=== PATIENT | female | born 1955 | race Caucasian/White ===

== ENCOUNTER → 2017-09-12 08:54 | Outpatient (CLI) | payer MEDICARE, BC ==
[2014-06-22 09:06] VITALS: BMI 48.1
[~2017-09-12 08:54] MED LIST: ASTELIN137 MCG NS; BENTYL10 MG PO; CARAFATE1 G PO; CELEXA20 MG PO; CHLORDIAZEPOXIDE; CLIDINIUM; DEMEROL50 MG PO; DEXILANT60 MG PO; EFFEXOR XR37.5 MG PO; ELIQUIS2.5 MG PO; KLONOPIN0.5 MG PO; NEURONTIN600 MG PO; PERCOCET 10/3251 TA1 PO; SOMA350 MG PO; SYNTHROID125 MCG PO; TENORMIN50 MG PO; TRADJENTA5 MG PO; TYLENOL PM1 TAB PO; ULTRAM50 MG PO; VITAMIN D50000 UNIT PO; ZANAFLEX4 MG PO
== END | disposition home or self-care (01) ==
LOC: D.MRI 08:54
DX: M25.512 Pain in left shoulder (principal)

== ENCOUNTER 2017-10-17 03:10 | Emergency (ER) | payer MEDICARE, BC ==
[~2017-10-17] VITALS: Ht 142.2 cm; Wt 111.4 kg
[2017-10-17 03:19] VITALS: Ht 142.2 cm; Wt 111.4 kg
[2017-10-17 04:24] LABS: APPEARANCE HAZY (CLEAR); BILIRUBIN NEGATIVE (NEGATIVE); COLOR YELLOW (YELLOW); GLUCOSE NEGATIVE (NEGATIVE); KETONE SMALL mg/dL (NEGATIVE); NITRITE NEGATIVE (NEGATIVE); PROTEIN NEGATIVE (NEGATIVE); SPECIFIC GRAVITY 1.025 (1.005-1.020); UROBILINOGEN NORMAL (NORMAL)
[2017-10-17 04:32] LABS: AMORPHOUS SEDIMENT <1+ /lpf (NONE SEEN); BACTERIA MANY /hpf (NONE SEEN); CALCIUM OXALATE CRYSTALS 0-5 /hpf (NONE SEEN); EPITHELIAL CELLS 0-5 /hpf (0-5); GRANULAR CAST OCC /lpf (NONE SEEN); HYALINE CAST RARE /lpf (NONE SEEN); RED CELLS - URINE 0-5 /hpf (0-5); WHITE CELLS - URINE 0-5 /hpf (0-5)
[2017-10-17 04:33] LABS: TALC POWDER CRYSTALS 0-5 /hpf (NONE SEEN)
[2017-10-17 04:43] LABS: BASOPHILS 0.3 % (0-2); EOSINOPHILS 0.2 % (0-7); HEMATOCRIT 40.5 % (36.0-48.0); HEMOGLOBIN 13.5 g/dL (12-16); IMMATURE GRANULOCYTES 0.3 % (0-5); LYMPHOCYTES 28.6 % (15-50); MCH 29.4 pg (26.0-34.0); MCHC 33.3 g/dL (31.0-37.0); MCV 88.2 fL (80.0-100.0); MEAN PLATELET VOLUME 9.6 fL (7.4-10.4); MONOCYTES 10.9 % (2-11); NEUTROPHILS 59.7 % (40-80); PLATELET COUNT 239 10x3/uL (130-400); RBC 4.59 10x6/uL (4.00-5.40); RDW 13.5 % (11.5-14.5); WBC 10.4 10x3/uL (4.8-10.8)
[2017-10-17 04:57] LABS: ALKALINE PHOSPHATASE 118 U/L (46-116); ALT (SGPT) 23 U/L (10-68); AMYLASE - SERUM 24 U/L (25-115); CALC OSMOLALITY 276 mosm/kg (275-300); CALCIUM 9.6 mg/dL (8.5-10.1); CARBON DIOXIDE 31.6 mmol/L (21.0-32.0); CHLORIDE - SERUM 102 mmol/L (98-107); CREATININE - SERUM 0.7 mg/dL (0.6-1.3); GLUCOSE 123 mg/dL (74-106); LIPASE 84 U/L (73-393); PROTEIN - SERUM 7.7 g/dL (6.4-8.2); SODIUM 138 mmol/L (136-145); UREA NITROGEN 13 mg/dL (7-18); eGFR NON AFRICAN AMERICAN 90 mL/min (90-120)
[2017-10-17] MEDS ORDERED: ZOFRAN8 MG PO (05:23)
[2017-10-17] MEDS ORDERED: BACTRIM DS TABL1 TAB PO (05:23)
[2017-10-17 05:47] VITALS: BP 135/85
== END 2017-10-17 05:48 | disposition home or self-care (01) ==
LOC: D.ER 03:10
PROVIDERS: Family Medicine
DX: N39.0 Urinary tract infection, site not specified (principal); F11.23 Opioid dependence with withdrawal

== ENCOUNTER 2018-08-09 07:33 | Day surgery (SDC) | payer MEDICARE, BC ==
[~2018-08-09] VITALS: Ht 142.2 cm; Wt 111.8 kg
[~2018-08-09 07:33] MED LIST changes: +BACTRIM DS TABL1 TAB PO; +ZOFRAN8 MG PO
[2018-08-09 08:00] LABS: HEMATOCRIT 38.9 % (36.0-48.0); HEMOGLOBIN 12.9 g/dL (12-16); MCH 29.7 pg (26.0-34.0); MCHC 33.2 g/dL (31.0-37.0); MCV 89.6 fL (80.0-100.0); MEAN PLATELET VOLUME 9.5 fL (7.4-10.4); RBC 4.34 10x6/uL (4.00-5.40); RDW 12.7 % (11.5-14.5); WBC 8.5 10x3/uL (4.8-10.8)
[2018-08-09 08:06] LABS: CALC OSMOLALITY 282 mosm/kg (275-300); CALCIUM 8.8 mg/dL (8.5-10.1); CARBON DIOXIDE 28.7 mmol/L (21.0-32.0); CHLORIDE - SERUM 105 mmol/L (98-107); CREATININE - SERUM 0.8 mg/dL (0.6-1.3); GLUCOSE 107 mg/dL (74-106); POTASSIUM - SERUM 3.8 mmol/L (3.5-5.1); SODIUM 143 mmol/L (136-145); UREA NITROGEN 8 mg/dL (7-18); eGFR NON AFRICAN AMERICAN 76 mL/min (90-120)
[2018-08-09] MEDS ORDERED: TYLENOL ARTHRITIS (08:36)
[2018-08-09] MEDS ORDERED: FLAXSEED (08:36)
[2018-08-09] MEDS ORDERED: VITAMIN C (08:37)
[2018-08-09] MEDS ORDERED: MILK THISTLE (08:37)
[2018-08-09] MEDS ORDERED: PROBIOTIC1 EAC1 PO (08:37)
[2018-08-09 08:58] VITALS: BP 145/85; Ht 142.2 cm; Wt 111.8 kg
--- NOTE | 2018-08-09 12:55 | NUR ---
1235 IV DC'D. CATHETER INTACT. NO BLEEDING AT SITE. BANDAID APPLIED. 1245 PT UNDERSTANDS DISCHARGE INSTRUCTIONS. PT'S DIGITAL [employer] SALES CONSULTANT IS HERE FOR TRANSPORT.
--- NOTE | 2018-08-13 10:17 | OP ---
PATIENT NAME: TEJINDER MCGHEE MEDICAL RECORD: [id number] :51 LOCATION:[facility] ADMISSION DATE: SURGEON: MARCELLO DUMONT MD DATE OF OPERATION: 08/09/2018 PROCEDURE: Colonoscopy with polypectomy. REFERRING PHYSICIAN: Julita Michel MD INDICATIONS: Ms. Mcghee is a delightful 62-year-old woman with a history of right colonic volvulus status post hemicolectomy, colon polyps and diverticulosis coli. She presents for outpatient surveillance colonoscopy. PREMEDICATIONS: Total IV anesthesia (BMI is 55.2) propofol 200 mg. INSTRUMENT: Alex and Ani video colonoscope, pediatric. PROCEDURE AND FINDINGS: After receiving informed consent, Ms. Mcghee was placed in left lateral decubitus position, sedated as per anesthesia. After achieving adequate level of sedation, a digital rectal exam was performed that showed no external hemorrhoidal tags, fissures or fistulas, normal sphincter tone, no palpable rectal masses. The colonoscope was introduced per rectally and advanced to the cecum without difficulty. The ileocolonic anastomosis was identified and appeared unremarkable. As the colonoscope was withdrawn, careful inspection was made of the mccartney of the colon. Overall, mucosa had normal vascular and fold pattern. A fair prep was present. There was some residual liquid stool. Multiple lavages were performed. In the transverse colon was a 0.3 cm sessile polyp removed with hot biopsy forceps technique and in the descending colon was a 0.75 cm sessile polyp removed with hot biopsy forceps technique. A few diverticula were seen scattered in the sigmoid colon. Retroflexion in the rectum showed mild internal hemorrhoids with a few tags. Withdrawal time was 9 minutes. Ms. Mcghee tolerated the procedure well, no immediate complications. ASSESSMENT: 1. Mild sigmoid diverticulosis. 2. Descending colon polyp status post polypectomy and transverse colon polyp status post polypectomy and mild internal hemorrhoids. RECOMMENDATIONS: 1. Follow up histopathology. 2. Avoid aspirin, nonsteroidal anti-inflammatory drugs and COE-2 inhibitors for 14 days post-polypectomy. 3. High fiber diet. 4. Surveillance colonoscopy in 3 years. TRANSINT:[id number] Voice Confirmation ID: [id number] DOCUMENT ID: [id number] OPERATIVE REPORT [id number] TEJINDER MCGHEE MARCELLO DUMONT MD at 1017 CC: JULITA MICHEL MD [id number] DICTATION DATE: 08/09/18 1134 AQUATICS DIRECTOR: 08/09/18 1322 DEP SDC 08/09/18 [id number] [place] [address]
== END 2018-08-09 12:52 | disposition home or self-care (01) ==
LOC: D.OPS 07:33
PROVIDERS: Anesthesiology; ATTEND Internal Medicine Gastroenterology
DX: K57.30 Diverticulosis of large intestine without perforation or abscess without bleeding (principal); D12.4 Benign neoplasm of descending colon; K63.5 Polyp of colon; K64.8 Other hemorrhoids; K64.4 Residual hemorrhoidal skin tags; Z90.49 Acquired absence of other specified parts of digestive tract; Z01.812 Encounter for preprocedural laboratory examination

== ENCOUNTER → 2018-09-16 07:33 | Outpatient (CLI) | payer MEDICARE, BC ==
[2018-08-09 08:58] VITALS: BMI 55.2
[~2018-09-16 07:33] MED LIST changes: +FLAXSEED; +MILK THISTLE; +PROBIOTIC1 EAC1 PO; +TYLENOL ARTHRITIS; +VITAMIN C
== END | disposition home or self-care (01) ==
LOC: D.CT 07:33
PROVIDERS: ATTEND Nurse Practitioner Family
DX: J32.9 Chronic sinusitis, unspecified (principal)

== ENCOUNTER → 2019-05-13 09:21 | Outpatient (CLI) | payer MEDICARE, OTHER ==
[~2019-05-13] VITALS: Ht 142.2 cm; Wt 114.8 kg
[2019-05-13 14:22] VITALS: Ht 142.2 cm; Wt 114.8 kg
== END | disposition home or self-care (01) ==
LOC: D.FANS 09:00
PROVIDERS: ATTEND Family Medicine
DX: E11.9 Type 2 diabetes mellitus without complications (principal); I10 Essential (primary) hypertension; E03.9 Hypothyroidism, unspecified; J44.9 Chronic obstructive pulmonary disease, unspecified; K21.9 Gastro-esophageal reflux disease without esophagitis; E66.01 Morbid (severe) obesity due to excess calories; Z68.41 Body mass index [BMI] 40.0-44.9, adult

== ENCOUNTER → 2019-07-28 08:37 | Outpatient (CLI) | payer MEDICARE, OTHER ==
[2019-05-13 14:22] VITALS: BMI 56.7
== END | disposition home or self-care (01) ==
LOC: D.RT 08:00
PROVIDERS: ATTEND Internal Medicine Pulmonary Disease
DX: R06.09 Other forms of dyspnea (principal)

== ENCOUNTER → 2019-09-11 09:43 | Outpatient (CLI) | payer MEDICARE, OTHER ==
[2019-05-13 14:22] VITALS: BMI 56.7
== END | disposition home or self-care (01) ==
LOC: D.RT 09:43
PROVIDERS: ATTEND Internal Medicine Pulmonary Disease
DX: R06.09 Other forms of dyspnea (principal)

== ENCOUNTER 2020-10-25 11:35 | Inpatient (IN) | payer MEDICARE, OTHER ==
[2020-10-22 10:35] LABS: BASOPHILS 0.7 % (0-2); EOSINOPHILS 0.5 % (0-7); HEMATOCRIT 39.7 % (36.0-48.0); HEMOGLOBIN 13.1 g/dL (12-16); LYMPHOCYTES 39.3 % (15-50); MCH 29.8 pg (26.0-34.0); MCHC 33.1 g/dL (31.0-37.0); MCV 90.2 fL (80.0-100.0); MEAN PLATELET VOLUME 8.1 fL (7.4-10.4); MONOCYTES 9.6 % (2-11); NEUTROPHILS 49.9 % (40-80); PLATELET COUNT 265 10x3/uL (130-400); RDW 12.8 % (11.5-14.5); WBC 6.6 10x3/uL (4.8-10.8)
[2020-10-22 10:43] LABS: CALC OSMOLALITY 277 mosm/kg (275-300); CARBON DIOXIDE 26.3 mmol/L (21.0-32.0); CHLORIDE - SERUM 103 mmol/L (98-107); CREATININE - SERUM 0.7 mg/dL (0.6-1.3); GLUCOSE 110 mg/dL (74-106); POTASSIUM - SERUM 4.1 mmol/L (3.5-5.1); SODIUM 139 mmol/L (136-145); UREA NITROGEN 9 mg/dL (7-18); eGFR NON AFRICAN AMERICAN 89 mL/min (90-120)
[2020-10-22 10:50] LABS: APTT 29.7 SECONDS (22.8-39.4); PROTIME 12.2 SECONDS (11.6-15.0)
[2020-10-22 12:13] LABS: BILIRUBIN NEGATIVE (NEGATIVE); KETONE NEGATIVE mg/dL (< 1+); NITRITE NEGATIVE (NEGATIVE); SQUAMOUS EPITHELIAL <1 HPF (0-4); UROBILINOGEN NORMAL mg/dL (< 2); WHITE CELLS - URINE 3 HPF (0-4)
[~2020-10-25] VITALS: Ht 149.9 cm; Wt 96.4 kg
[2020-10-25] VITALS (9 sets, daily range): BP systolic 88–130; BP diastolic 58–82; BMI 43.1
--- NOTE | ~2020-10-25 | OP ---
PATIENT NAME: TEJINDER MCGHEE MEDICAL RECORD: [id number] :51 LOCATION:[id number] ADMISSION DATE:10/25/20 SURGEON: YVETTE BULLARD MD DATE OF OPERATION: 10/25/2020 PREOPERATIVE DIAGNOSIS: Osteoarthritis, right hip. POSTOPERATIVE DIAGNOSIS: Osteoarthritis, right hip. PROCEDURE PERFORMED: Right total hip arthroplasty. INDICATIONS: Ms. Mcghee is a 64-year-old female with history of right hip pain and arthritis. She has been dealing with this for some time now and her pain is getting worse and affecting her mobility. She has elected to proceed with surgery for right total hip arthroplasty. Risks, benefits, and alternatives of surgery were discussed with the patient and consent was obtained. DESCRIPTION OF PROCEDURE: The patient was met in the holding area where her identity and confirmation of procedure was performed. The right lower extremity was marked and she was taken to the operating room where she was placed supine on the operating table, and anesthesia was administered. She was then positioned on the Joaquin table. Extremities were positioned and padded appropriately. The right lower extremity was prepped and draped in a sterile fashion. The patient received preoperative antibiotics as well as TXA and a timeout was performed before initiating the case. On the initiation of the case, an anterior Morley-Rosas approach was utilized for exposure. We incised through the skin and subcutaneous tissues dissecting down to the tensor fascia. The fascia was then split longitudinally and the interval between tensor and sartorius/rectus was utilized for deep exposure. We dissected down to identify the lateral circumflex vessels and these were tied and cauterized. We then dissected down to the anterior hip capsule and placed retractors around the superior and inferior femoral neck. Our position was confirmed under fluoroscopy. We then placed a retractor over the anterior brim of the acetabulum. The anterior capsule was then excised. Retractors were repositioned around the femoral neck and our femoral neck cut was completed. The femoral head was removed with a corkscrew device. Femoral head measured 43 mm. Retractors were then repositioned around the acetabulum and the acetabulum was debrided. We then reamed the acetabulum starting with a size 41 and going up to a size [address] a 48 mm cup. The cup was placed and malleted into position. Alignment and positioning was confirmed under fluoroscopy. It was noted to be stable and the center hole cup was then placed. Liner was then tapped into position. We then turned our attention to the proximal femur. The leg was externally rotated and the hip was taken into extension and adduction. A hook was placed under the proximal femur. Retractors were placed in the medial calcar and over the greater trochanter. Tissue was debrided from the shoulder of the proximal femur as the leg was elevated to allow for full exposure. Once the hip was adequately exposed, we then began preparing the proximal femur using a cookie cutter and canal finder. We then broached up sequentially to a size 7, which had good fit and stability. This was trialled with a neutral head and neck, it was a little unstable. The hip was again dislocated and repositioned and we trialed this with a high offset neck and +3 head. The stability was much improved and leg lengths were near equal. The stem had good fit under fluoroscopy. The hip was again dislocated and repositioned. Trial components were removed and the hip was irrigated thoroughly with saline. Our stem was placed and tapped into position. We then OPERATIVE REPORT [id number] TEJINDER MCGHEE placed a +3 head and again securely tapped it into position. Hip was reduced and images were obtained that showed good fit of our stem with near equal leg lengths. Stability was checked with the shuck and noted to be stable. Hip was irrigated thoroughly with saline. Joint solution was injected around the capsule and the proximal femur. The tensor fascia was then closed with running Vicryl suture. The subcutaneous tissues were irrigated thoroughly with saline. A drain was placed extrafascially. The tissue was then closed over the drain. The subcutaneous tissue was closed with Vicryl suture and then the subcutaneous skin was closed with a Monocryl suture. A Prineo Dermabond dressing was then placed over the skin. This was covered with a sterile dressing. The patient was turned back over to anesthesia where she was awakened and taken to the recovery room in stable condition. POSTOPERATIVE PLAN: The patient is going to be admitted for routine postoperative care. She received 24 hours postoperative antibiotics. She will be started on DVT prophylaxis tomorrow. Physical therapy will be consulted to assist with mobilization, weightbearing as tolerated, right lower extremity. PLAN: Home with home health upon discharge. COMPLICATIONS: None. ESTIMATED BLOOD LOSS: 100 mL. ANESTHESIA: General with peripheral nerve block. TRANSINT:[id number] Voice Confirmation ID: [id number] DOCUMENT ID: [id number] YVETTE BULLARD MD CC: [id number] DICTATION DATE: 10/25/201857 REIMBURSEMENT SPECIALIST: 10/26/20 0040 ADM IN [id number] [place] [address]
[~2020-10-25 11:35] MED LIST changes: +CYCLOBENZAPRINE10 MG PO; +DILAUDID2 MG PO; +HYDROCODONE-AC1 EAC2; +IPRATROPIUM BRO15 M1; +SINGULAIR10 MG PO; +VENTOLIN HFA [SP8 GM INH; +VOLTAREN25 MG
--- NOTE | 2020-10-25 19:16 | NUR ---
REC'D PATIENT FROM RECOVERY. VSS. DRESSING C/D/I. SCD HOSE IN PLACE. PATIENT DENIES NEEDS AT THIS TIME. ENCOURAGED PATIENT TO CALL WITH NEEDS.
--- NOTE | 2020-10-25 21:43 | NUR ---
ADMINISTERED MEDS PER ORDERS. PATIENT SUNIL WELL. ENCOURAGED PATIENT TO CALL WITH NEEDS.
[2020-10-26] VITALS (7 sets, daily range): BP systolic 98–123; BP diastolic 47–79; Ht 149.9 cm; Wt 96.4 kg
[2020-10-26 05:41] LABS: HEMATOCRIT 32.6 % (36.0-48.0); HEMOGLOBIN 10.6 g/dL (12-16); MCH 29.9 pg (26.0-34.0); MCHC 32.5 g/dL (31.0-37.0); MEAN PLATELET VOLUME 8.5 fL (7.4-10.4); RBC 3.54 10x6/uL (4.00-5.40); RDW 12.9 % (11.5-14.5); WBC 16.7 10x3/uL (4.8-10.8)
--- NOTE | 2020-10-26 06:49 | NUR ---
D/C'D REGALADO PER ORDERS. TIP INTACT.
--- NOTE | 2020-10-26 08:22 | NUR ---
AWAKE AND ALERT. ORIENTED X3. NO C/O AT THIS TIME. LUNGS ARE CLEAR BILATERALLY, NO COUGH NOTED. SKIN IS INTACT WITHOUT REDNESS EXCEPT INCISION TO RIGHT THIGH/GROIN AREA WHICH HAS A DRY INTACT DRESSING IN PLACE. IV TO LEFT THUMB PATENT WITHOUT REDNESS AT INSERTION SITE. DENIES NEEDS.
--- NOTE | 2020-10-26 09:30 | NUR ---
ATE MOST OF BREAKFAST. TOOK AM MEDS WITHOUT DIFFICULTY. DENIES NEEDS.
--- NOTE | 2020-10-26 10:00 | NUR ---
UP IN CHIAR AT BEDSIDE PER PT. DENIES NEEDS.
--- NOTE | 2020-10-26 19:18 | NUR ---
NO CHANGES AT THIS TIME. DENIES NEEDS. WAS UP TO BR WITH ONE PERSON MIN ASSIST. VOIDED CLEAR YELLOW URINE WITHOUT DIFFICULTY. [facility] PER SELF. DENIES NEEDS.
--- NOTE | 2020-10-26 20:00 | NUR ---
ALERT RESTING IN BED, DENIES PAIN OR NEEDS AT THIS TIME, SEE SHIFT ASSESSMENT, CALL LIGHT IN REACH
[2020-10-27 00:16] VITALS: BP 97/68
[2020-10-27 05:37] VITALS: BP 131/56
[2020-10-27 07:15] LABS: BASOPHILS 0.3 % (0-2); EOSINOPHILS 0.3 % (0-7); HEMATOCRIT 28.3 % (36.0-48.0); HEMOGLOBIN 9.2 g/dL (12-16); LYMPHOCYTES 23.6 % (15-50); MCHC 32.5 g/dL (31.0-37.0); MCV 92.3 fL (80.0-100.0); MEAN PLATELET VOLUME 8.1 fL (7.4-10.4); MONOCYTES 12.9 % (2-11); NEUTROPHILS 62.9 % (40-80); PLATELET COUNT 202 10x3/uL (130-400); RBC 3.07 10x6/uL (4.00-5.40); WBC 12.7 10x3/uL (4.8-10.8)
[2020-10-27 07:42] LABS: ALBUMIN 3.2 g/dL (3.4-5.0); ALKALINE PHOSPHATASE 88 U/L (30-120); ALT (SGPT) 18 U/L (10-68); BILIRUBIN - TOTAL 0.42 mg/dL (0.2-1.3); CALC OSMOLALITY 279 mosm/kg (275-300); CALCIUM 8.2 mg/dL (8.5-10.1); CARBON DIOXIDE 26.5 mmol/L (21.0-32.0); CHLORIDE - SERUM 105 mmol/L (98-107); CREATININE - SERUM 0.7 mg/dL (0.6-1.3); GLUCOSE 130 mg/dL (74-106); POTASSIUM - SERUM 3.8 mmol/L (3.5-5.1); PROTEIN - SERUM 5.9 g/dL (6.4-8.2); SODIUM 140 mmol/L (136-145); UREA NITROGEN 9 mg/dL (7-18); eGFR NON AFRICAN AMERICAN 89 mL/min (90-120)
[2020-10-27 09:38] VITALS: BP 138/77
--- NOTE | 2020-10-27 09:41 | MORECARE ---
CASE MANAGEMENT DISCHARGE SUMMARY PATIENT: TJEINDER MCGHEE UNIT: [id number] ADM DATE: 10/26/20 AGE: 64 : 53 SEX: F ROOM/BED: [facility] AUTHOR: TIFFANIEDOC PHYSICIAN: REFERRING PHYSICIAN: YVETTE BULLARD MD DATE OF SERVICE: 10/27/20 Case Management Discharge Planning Summary DCP REVIEW SUMMARY ANTICIPATED D/C DATE: EXPECTED LOS : CASE STATUS: DCP Initiated INITIAL REVIEW: 10/25/2020 INITIAL REVIEWER: Yadi Don FINAL DISCHARGE DISPOSITION: : FINAL REVIEWER: FINAL REVIEW DATE: DCP Focus Questions & Answers QUESTION: ANSWER : PATIENT: TEJINDER MCGHEE ENCOUNTER: [id number] MEDICAL RECORD#: [id number] ADMISSION DATE: 10/26/2020 DISCHARGE DATE: ATTENDING MD: : AGE: 64 MARITAL STATUS: S DC PLAN ID: [id number] FACILITY: [facility] PRINTED ON: 10/27/20 9:40 CT All edits/amendments must be made on the electronic document DICTATION DATE: 10/27/20939 SOIL TECHNOLOGIST: DM 10/27/20939 RPT#: [id number] DC DATE: STATUS: ADM IN [facility] [address] [place] [address] END OF REPORT
--- NOTE | 2020-10-27 10:15 | NUR ---
MORNING VS PT HAD FEVER OF 101.3, RECHECK AT 1010 TEMP WAS 100.0, ADMINISTERED TYLENOL WITH MORNING MEDS, INFORMED PT THE NEED TO RECHECK FEVER IN 30 MINUTES, PT STATES SHE INFORMED NURSE YESTERDAY THAT SHE FELT WARM BUT NO TEMP WAS FOUND, TODAY SHE FEELS OK AND HAS FEVER, PT TO TALK WITH PROVIDER DURING ROUNDS
[2020-10-27 13:27] VITALS: BP 125/72
--- NOTE | 2020-10-27 13:58 | MORECARE ---
CASE MANAGEMENT DISCHARGE SUMMARY PATIENT: TEJINDER MCGHEE UNIT: [id number] ADM DATE: 10/26/20 AGE: 64 : 53 SEX: F ROOM/BED: [facility] AUTHOR: TIFFANIEDOC PHYSICIAN: REFERRING PHYSICIAN: YVETTE BULLARD MD DATE OF SERVICE: 10/27/20 Case Management Discharge Planning Summary DCP REVIEW SUMMARY ANTICIPATED D/C DATE: EXPECTED LOS : CASE STATUS: DCP Initiated INITIAL REVIEW: 10/25/2020 INITIAL REVIEWER: Yadi Don FINAL DISCHARGE DISPOSITION: : FINAL REVIEWER: FINAL REVIEW DATE: DCP Focus Questions & Answers QUESTION: ANSWER : PATIENT: TEJINDER MCGHEE ENCOUNTER: [id number] MEDICAL RECORD#: [id number] ADMISSION DATE: 10/26/2020 DISCHARGE DATE: ATTENDING MD: : AGE: 64 MARITAL STATUS: S DC PLAN ID: [id number] FACILITY: [facility] PRINTED ON: 10/27/20 13:58 CT All edits/amendments must be made on the electronic document DICTATION DATE: 10/27/20 135 WELL SERVICE FLOORPERSON: DM 10/27/20 1358 RPT#: [id number] DC DATE: STATUS: ADM IN [facility] [address] [place] [address] END OF REPORT
[2020-10-27] MEDS ORDERED: ELIQUIS2.5 MG PO (14:19)
[2020-10-27] MEDS ORDERED: HYDROCODON-ACE1 EA10 PO (14:20)
--- NOTE | 2020-10-27 17:14 | MORECARE ---
CASE MANAGEMENT DISCHARGE SUMMARY PATIENT: TEJINDER MCGHEE UNIT: [id number] ADM DATE: 10/26/20 AGE: 64 : 53 SEX: F ROOM/BED: [facility] AUTHOR: TIFFANIE,DOC PHYSICIAN: REFERRING PHYSICIAN: YVETTE BULLARD MD DATE OF SERVICE: 10/27/20 Case Management Discharge Planning Summary DCP REVIEW SUMMARY ANTICIPATED D/C DATE: EXPECTED LOS : CASE STATUS: DCP Initiated INITIAL REVIEW: 10/25/2020 INITIAL REVIEWER: Yadi Don FINAL DISCHARGE DISPOSITION: : FINAL REVIEWER: FINAL REVIEW DATE: DCP Focus Questions & Answers QUESTION: ANSWER : PATIENT: TEJINDER MCGHEE ENCOUNTER: [id number] MEDICAL RECORD#: [id number] ADMISSION DATE: 10/26/2020 DISCHARGE DATE: 10/27/2020 ATTENDING MD: : AGE: 64 MARITAL STATUS: S DC PLAN ID: [id number] FACILITY: [facility] PRINTED ON: 10/27/20 17:14 CT All edits/amendments must be made on the electronic document DICTATION DATE: 10/27/201713 PAPER MILL MANAGER: JESSICA 10/27/201713 RPT#: [id number] DC DATE:10/27/20 STATUS: DIS IN [facility] [address] [place] [address] END OF REPORT
--- NOTE | 2020-10-28 10:08 | MORECARE ---
CASE MANAGEMENT DISCHARGE SUMMARY PATIENT: TEJINDER MCGHEE UNIT: [id number] ADM DATE: 10/26/20 AGE: 64 : 53 SEX: F ROOM/BED: [facility] AUTHOR: TIFFANIE,DOC PHYSICIAN: REFERRING PHYSICIAN: YVETTE BULLARD MD DATE OF SERVICE: 10/28/20 Case Management Discharge Planning Summary DCP REVIEW SUMMARY ANTICIPATED D/C DATE: EXPECTED LOS : CASE STATUS: DCP Initiated INITIAL REVIEW: 10/25/2020 INITIAL REVIEWER: Yadi Don FINAL DISCHARGE DISPOSITION: : FINAL REVIEWER: FINAL REVIEW DATE: DCP Focus Questions & Answers QUESTION: ANSWER : PATIENT: TEIJNDER MCGHEE ENCOUNTER: [id number] MEDICAL RECORD#: [id number] ADMISSION DATE: 10/26/2020 DISCHARGE DATE: 10/27/2020 ATTENDING MD: : AGE: 64 MARITAL STATUS: S DC PLAN ID: [id number] FACILITY: [facility] PRINTED ON: 10/28/20 10:08 CT All edits/amendments must be made on the electronic document DICTATION DATE: 10/28/20 1007 MERINGUER: DM 10/28/20 1007 RPT#: [id number] DC DATE:10/27/20 STATUS: DIS IN [facility] [address] [place] [address] END OF REPORT
== END 2020-10-27 15:30 | disposition home health service (06) | DRG 470 ==
LOC: D.OPS 11:35 → D.MS 18:35 → D.OPS 18:42 → D.MS 19:09 → OBSVTIME 19:09 → D.MS 19:09
PROVIDERS: Family Medicine; ADMIT Orthopaedic Surgery; ATTEND Orthopaedic Surgery
PROC: 0SR90JZ Replacement of Right Hip Joint with Synthetic Substitute, Open Approach (ICD-10-PCS; principal; 2020-10-25 13:30)
DX: M16.11 Unilateral primary osteoarthritis, right hip (principal); E11.9 Type 2 diabetes mellitus without complications; E03.9 Hypothyroidism, unspecified; I10 Essential (primary) hypertension; J45.909 Unspecified asthma, uncomplicated; G89.29 Other chronic pain; M54.9 Dorsalgia, unspecified; F41.8 Other specified anxiety disorders